=== PATIENT | female | born 1965 | race African-American/Black ===

== ENCOUNTER 2020-05-09 16:35 | Emergency (ER) | payer OTHER ==
[~2020-05-09] VITALS: Ht 157.5 cm; Wt 63.6 kg
[2020-05-09] MEDS ORDERED: MORPHINE SULFATE 4 MG/ML VIAL. IM ONE (18:00)
[2020-05-09] MEDS ORDERED: methylPREDNISolone SOD SUCC PF 125 MG/2 ML VIAL. IM ONE (18:00)
--- NOTE | 2020-05-09 18:05 | PHYS DOC ---
Past Medical History Past Medical History: Other Additional Past Medical Histor: Lupus Past Surgical History: Other Additional Past Surgical Histo: R hand r/t infection Smoking Status: Never Smoker Alcohol Use: None General Adult EDM: Chief Complaint: PAIN CONTROL HPI: HPI: Patient is a 54 year old female with history of lupus presenting today stating "you need to get rid of all my pain". On asking patient what she means, patient states she has lupus and has chronic pain to her lower extremities with chronic weakness to lower extremities, she states she would like all her pain relieved right now. On asking her who she follows up with for chronic lupus, she states she has a PCP and actually has an appointment tomorrow. Patient denies any injuries. Review of Systems: Review of Systems: Constitutional: Denies fever or chills. [] Eyes: Denies change in visual acuity. [] HENT: Denies nasal congestion or sore throat. [] Respiratory: Denies cough or shortness of breath. [] Cardiovascular: Denies chest pain or edema. [] GI: Denies abdominal pain, nausea, vomiting, bloody stools or diarrhea. [] : Denies dysuria. [] Musculoskeletal: Reports chronic bilateral lower extremity pain from lupus. Denies back pain. Reports chronic weakness to bilateral lower extremities from lupus Integument: Denies rash. [] Neurologic: Denies headache, focal weakness or sensory changes. [] Psychiatric: Denies depression or anxiety. [] Heart Score: C/O Chest Pain: No Risk Factors: Risk Factors: DM, Current or recent (<one month) smoker, HTN, HLP, family history of CAD, obesity. Risk Scores: Score 0 - 3: 2.5% MACE over next 6 weeks - Discharge Home Score 4 - 6: 20.3% MACE over next 6 weeks - Admit for Clinical Observation Score 7 - 10: 72.7% MACE over next 6 weeks - Early Invasive Strategies Current Medications: Current Medications Medications (Trade) Dose Ordered Sig/Zee Start Time Stop Time Status Last Admin Dose Admin Methylprednisolone Sodium Succinate (SOLU-Medrol 125MG VIAL) 125 mg 1X ONCE 05/09/20 18:00 05/09/20 18:01 05/09/20 17:54 125 MG Morphine Sulfate (Morphine Sulfate) 4 mg 1X ONCE 05/09/20 18:00 05/09/20 18:01 05/09/20 17:54 4 MG Allergies: Allergies: Allergies Coded Allergies Type Severity Reaction Last Updated Verified No Known Drug Allergies 05/09/20 No Physical Exam: PE: Constitutional: Well developed, well nourished, no acute distress, non-toxic appearance. [] HENT: Normocephalic, atraumatic, bilateral external ears normal, oropharynx moist, no oral exudates, nose normal. [] Eyes: PERRLA, EOMI, conjunctiva normal, no discharge. [] Neck: Normal range of motion, no tenderness, supple, no stridor. [] Cardiovascular:Heart rate regular rhythm, no murmur [] Lungs & Thorax: Bilateral breath sounds clear to auscultation [] Abdomen: Bowel sounds normal, soft, no tenderness, no masses, no pulsatile masses. [] Skin: Warm, dry, no erythema, no rash. [] Back: No tenderness, no CVA tenderness. [] Extremities: No tenderness, no cyanosis, no clubbing, limited range of motion to bilateral upper and lower extremities due to chronic lupus no edema. [] Neurologic: Alert and oriented X 3, normal motor function, normal sensory function, no focal deficits noted. Cranial nerves II through XII intact Psychologic: Affect normal, judgement normal, mood normal. [] Current Patient Data: Vital Signs: Vital Signs Date Time Temp Pulse Resp B/P (MAP) Pulse Ox O2 Delivery O2 Flow Rate FiO2 05/09/20 17:54 16 98 05/09/20 16:45 98.3 110 148/91 (110) Room Air 98.3 EKG: EKG: [] Radiology/Procedures: Radiology/Procedures: [] Course & Med Decision Making: Course & Med Decision Making Pertinent Labs and Imaging studies reviewed. (See chart for details) This is a 54-year-old female patient with lupus presenting today complaining of chronic pain and chronic weakness to bilateral lower extremities. Patient is requesting something for pain. She has an appointment with her PCP tomorrow. I offered her Solu-Medrol and morphine in the ED and told her to follow-up with her doctor tomorrow Gamal Disclaimer: Gamal Disclaimer: This electronic medical record was generated, in whole or in part, using a voice recognition dictation system. Departure Departure Impression: Primary Impression: Lower extremity pain Qualified Codes: M79.604 - Pain in right leg; M79.605 - Pain in left leg Disposition: 01 DC HOME SELF CARE/HOMELESS Condition: STABLE Referrals: SCARLETT BARR MD (PCP) follow up tomorrow Patient Instructions: Musculoskeletal Pain Additional Instructions: Please follow-up with your doctor tomorrow YANNI TIDWELL APRN May 09, 2020 18:05
[2020-05-09 18:25] VITALS: BP 140/86
== END 2020-05-09 18:25 | disposition home or self-care (01) ==
LOC: ER 16:35
DX: M79.604 Pain in right leg (principal); M79.605 Pain in left leg; R53.1 Weakness; Z98.890 Other specified postprocedural states
CPT/HCPCS: 96372; 99284; J2270; J2930